=== PATIENT | male | born 1980 | race Caucasian/White ===

== ENCOUNTER 2021-09-26 21:58 | Inpatient (IN) | payer OTHER ==
[~2021-09-26 21:58] MED LIST: Iopamidol-370 76% 500 ML 1 ML ONE
[2021-09-26] MEDS ORDERED: Propofol 1,000 MG/100 ML VIAL IV ONE (22:08)
[2021-09-26] MEDS ORDERED: CEFAZOLIN 1 GM VIAL ONE (22:14)
[2021-09-26] MEDS ORDERED: Fentanyl CADD 100 ML IV SCH (22:15)
[2021-09-26] MEDS ORDERED: Boostrix 0.5 ML (Tdap) VIAL ONE (22:15)
[2021-09-26 22:20] LABS: #Eosinphils 0.2 thou/uL (0.0-0.7); #Lymphocytes 1.8 thou/uL (1.20-3.40); #Monocytes 0.4 thou/uL (0.11-0.59); #Neutrophils 7.5 thou/uL (1.40-6.50); %Basophils 0.3 % (0.0-1.0); %Eosinophils 1.8 % (0.0-10.0); %Lymphocytes 17.9 % (21.0-51.0); %Neutrophils 76.1 % (42.0-75.0); Hemoglobin 15.1 g/dL (14.0-18.0); Mean Corpuscular HGB CONC 33.4 g/dL (32.0-36.0); Mean Corpuscular Volume 92.6 fL (78.0-98.0); Mean Platelet Volume 7.5 fL (7.4-10.4); Platelet Count 218 thou/uL (130-400); RBC Distribution Width 11.8 % (11.5-14.5); Red Blood Cell (RBC) Count 4.87 mill/uL (4.70-6.10); White Blood Cell (WBC) Count 9.9 thou/uL (4.8-10.8)
[2021-09-26] MEDS ORDERED: Midazolam HCl 2 mg/2 ml Vial ONE (22:24)
[2021-09-26] MEDS ORDERED: Vecuronium 10 MG VIAL ONE (22:24)
[2021-09-26] MEDS ORDERED: Sterile Water 10 ML ONE (22:25)
[2021-09-26 22:30] LABS: PTT 29.2 sec (22.9-36.1); Prothrombin Time 13.8 sec (12.0-14.7)
[2021-09-26 22:42] LABS: ALT (SGPT) 29 U/L (8-55); AST (SGOT) 39 U/L (5-34); Acetaminophen Less than 6.0 mcg/mL (10.0-30.0); Alcohol 240 mg/dL (Less than 10); Alkaline Phosphatase 69 U/L (40-110); Anion Gap 21 mmol/L (10-20); BUN (Urea Nitrogen) 9 mg/dL (8.9-20.6); Bilirubin, Total 0.3 mg/dL (0.2-1.2); Calc. Creatinine Clearance 0 mL/min (70-130); Calcium 7.9 mg/dL (7.8-10.44); Carbon Dioxide 12 mmol/L (22-29); Chloride 113 mmol/L (98-107); Globulin 2.9 g/dL (2.4-3.5); Glucose 174 mg/dL (70-105); Lactic Acid 5.9 mmol/L (0.5-2.2); Potassium 4.2 mmol/L (3.5-5.1); Protein, Total 6.9 g/dL (6.0-8.3); Salicylate Less than 8.0 mg/dL (15.0-30.0); Sodium 142 mmol/L (136-145)
[2021-09-26 22:53] LABS: Bilirubin Negative (Negative); Blood, Urine 2+ (Negative); Clarity Clear (Clear); Glucose, Urine (Dipstick) Normal (Negative); Ketone, Urine Trace mg/dL (Negative); Leukocyte Negative Leu/uL (Negative); Nitrite Negative (Negative); Protein, Urine (Dipstick) Negative (Neg-Trace); RBC/HPF 0-3 HPF (0-3); Specific Gravity, Urine 1.008 (1.002-1.036); Squamous Epithelial None Seen HPF (0-3); Urobilinogen Normal mg/dL (Less than 2); WBC/HPF 0-3 HPF (0-3)
[2021-09-26 22:54] LABS: Phosphorus 2.7 mg/dL (2.3-4.7)
[2021-09-26 22:54] LABS: Bacteria/HPF Rare-Few HPF (None Seen)
[2021-09-26 22:55] LABS: Amphetamine Not Detected (NotDetected); Barbiturates Screen Not Detected (NotDetected); Benzodiazepine Screen Not Detected (NotDetected); Cocaine Metabolite Screen Not Detected (NotDetected); Methadone Not Detected (NotDetected); Methamphetamine Not Detected (NotDetected); Opiate Screen Not Detected (NotDetected); Oxycodone Screen Not Detected (NotDetected); Phencyclidine (PCP) Not Detected (NotDetected); THC/Cannabinoid Screen Detected (NotDetected); Tricyclic Screen Not Detected (NotDetected)
[2021-09-26] MEDS ORDERED: hydrALAZINE 20 MG/ML VIAL SLOW IVP PRN (23:08)
[2021-09-26] MEDS ORDERED: Dextrose 50% Abboject 50 ML SYRINGE SLOW IVP PRN (23:08)
[2021-09-26] MEDS ORDERED: Insulin Regular 300 UNITS/3 ML VIAL SC PRN (23:08)
[2021-09-26] MEDS ORDERED: Dextrose 5% in Water 1,000 ML IV PRN (23:08)
[2021-09-26] MEDS ORDERED: Ventilator Sedation Protocol 1 EACH FS SCH (23:15)
[2021-09-26 23:25] LABS: Actual Bicarbonate (HCO3a) 16.1 mEq/L (22-28); Analyzer IN Cardio ER; Base Excess (BEa) -10.3 mEq/L (-2.0 to +3.0); CO2 Tension 37.2 mmHg (35.0-45.0); Calcium, Ionized (arterial) 1.09 mmol/L (1.12-1.30); Carboxyhemoglobin (COHb) 2.9 gm% (0.0-3.0); Hemoglobin (Hb) 14.9 g/dL (14.0-18.0); Potassium - ABG Lab 4.17 mmol/L (3.70-5.30)
[2021-09-26 23:26] LABS: pH, Arterial 7.25 (7.35-7.45)
[2021-09-26 23:27] LABS: O2 Tension (PaO2), arterial 520.2 mmHg (80.0-100.0); Puncture Site LRA
[2021-09-26] MEDS ORDERED: Propofol 1,000 MG/100 ML VIAL IV PRN (23:45)
[2021-09-26] MEDS ORDERED: Sodium Chloride 0.9% 1,000 ML IV SCH (23:45)
[2021-09-26] MEDS ORDERED: levETIRAcetam in NS 500 MG in Premix Bag 1 BAG IVPB SCH (23:59)
[2021-09-26] MEDS ORDERED: Sodium Phosphate 15 MMOL in Sodium Chloride 0.9% 250 ML 250 ML IVPB SCH (23:59)
[2021-09-27 00:09] LABS: SARS-CoV-2 NAA Rapid Test DETECTED (NotDetected)
[2021-09-27] MEDS: Acetaminophen 500 MG TAB PO SCH ×2 (00:09→03:39)
[2021-09-27 00:15] LABS: Actual Bicarbonate (HCO3a) 17.1 mEq/L (22-28); Base Excess (BEa) -9.8 mEq/L (-2.0 to +3.0); CO2 Tension 41.4 mmHg (35.0-45.0); Calcium, Ionized (arterial) 1.12 mmol/L (1.12-1.30); Carboxyhemoglobin (COHb) 1.4 gm% (0.0-3.0); O2 Tension (PaO2), arterial 315.6 mmHg (80.0-100.0); Potassium - ABG Lab 4.22 mmol/L (3.70-5.30)
[2021-09-27 00:17] LABS: Puncture Site RB; pH, Arterial 7.24 (7.35-7.45)
[2021-09-27] MEDS ORDERED: Sodium Bicarb 50 MEQ/50 ML Abboject 8.4% SYRINGE ONE (00:30)
[2021-09-27] MEDS ORDERED: Sodium Bicarb 50 MEQ/50 ML Abboject 8.4% SYRINGE IVP SCH (00:30)
[2021-09-27] MEDS ORDERED: Aspirin Chewable 81 MG TAB ONE (00:32)
[2021-09-27 00:36] LABS: Troponin I Less than 0.010 ng/mL (< 0.028)
[2021-09-27] MEDS: Aspirin 325 mg Enteric Coated Tablet PO SCH ×2 (00:36→03:39)
[2021-09-27] MEDS: Aspirin 325 MG TAB PO SCH (01:00)
[2021-09-27] MEDS ORDERED: Acetaminophen 650 MG/20.3 ML UDCUP PO SCH (01:00)
[2021-09-27] MEDS ORDERED: Sodium Chloride 0.9% 1,000 ML IV SCH (02:00)
[2021-09-27 02:01] VITALS: BMI 18.0
[2021-09-27] MEDS ORDERED: Lidocaine 1% (PF) 30 ML VIAL ONE (04:50)
[2021-09-27] MEDS ORDERED: Lidocaine 1% (PF) 30 ML VIAL SC SCH (05:00)
[2021-09-27 05:05] LABS: #Eosinphils 0.1 thou/uL (0.0-0.7); #Lymphocytes 2.2 thou/uL (1.20-3.40); #Monocytes 0.8 thou/uL (0.11-0.59); #Neutrophils 8.8 thou/uL (1.40-6.50); %Basophils 0.2 % (0.0-1.0); %Eosinophils 0.4 % (0.0-10.0); %Lymphocytes 18.3 % (21.0-51.0); %Monocytes 6.7 % (0.0-10.0); %Neutrophils 74.3 % (42.0-75.0); Hemoglobin 12.6 g/dL (14.0-18.0); Mean Corpuscular HGB CONC 33.2 g/dL (32.0-36.0); Mean Corpuscular Hemoglobin 30.5 pg (27.0-31.0); Mean Corpuscular Volume 92.1 fL (78.0-98.0); Mean Platelet Volume 7.5 fL (7.4-10.4); Platelet Count 189 thou/uL (130-400); RBC Distribution Width 11.8 % (11.5-14.5); Red Blood Cell (RBC) Count 4.14 mill/uL (4.70-6.10); White Blood Cell (WBC) Count 11.8 thou/uL (4.8-10.8)
[2021-09-27] MEDS: Acetaminophen 650 MG/20.3 ML UDCUP PO SCH ×4 (05:14→23:33)
[2021-09-27] MEDS: Oxazepam 10 MG CAP PO SCH ×3 (05:15→22:22)
[2021-09-27 05:24] LABS: Lactic Acid 2.6 mmol/L (0.5-2.2)
[2021-09-27 05:30] LABS: Anion Gap 14 mmol/L (10-20); BUN (Urea Nitrogen) 8 mg/dL (8.9-20.6); CK (CPK) 2418 U/L (30-200); Calc. Creatinine Clearance 106 mL/min (70-130); Calcium 7.5 mg/dL (7.8-10.44); Carbon Dioxide 22 mmol/L (22-29); Chloride 114 mmol/L (98-107); Glucose 83 mg/dL (70-105); Magnesium 1.6 mg/dL (1.6-2.6); Phosphorus 2.9 mg/dL (2.3-4.7); Potassium 3.6 mmol/L (3.5-5.1); Sodium 146 mmol/L (136-145)
[2021-09-27] MEDS ORDERED: Propofol BOLUS 1,000 MG/100 ML VIAL IV PRN (05:45)
[2021-09-27] MEDS ORDERED: Fentanyl BOLUS 250 ML IVPB PRN (05:45)
[2021-09-27] MEDS ORDERED: Potassium Phosphate 30 MMOL in Sodium Chloride 0.9% 250 ML 250 ML IVPB SCH (07:30)
[2021-09-27] MEDS ORDERED: Magnesium Sulfate 3 GM in Sodium Chloride 0.9% 100 ML IV SCH (07:30)
[2021-09-27] MEDS ORDERED: Dextrose 5 %-0.45 % NaCl 1,000 ML IV SCH (07:30)
[2021-09-27 08:18] LABS: Actual Bicarbonate (HCO3a) 21.2 mEq/L (22-28); Base Excess (BEa) -2.4 mEq/L (-2.0 to +3.0); CO2 Tension 33.2 mmHg (35.0-45.0); Calcium, Ionized (arterial) 1.01 mmol/L (1.12-1.30); Hemoglobin (Hb) 12.8 g/dL (14.0-18.0); Potassium - ABG Lab 3.24 mmol/L (3.70-5.30); pH, Arterial 7.42 (7.35-7.45)
[2021-09-27 08:24] LABS: O2 Tension (PaO2), arterial 54.1 mmHg (80.0-100.0); Puncture Site RRA
[2021-09-27] MEDS ORDERED: Calcium Chloride 1 GM/10 ML Abboject SYRINGE IVP SCH (08:45)
[2021-09-27] MEDS: Polyethylene Glycol 3350 17 GM Packet PO SCH (08:46)
[2021-09-27] MEDS: Multivitamin W/ Minerals 1 TAB PO SCH (08:46)
[2021-09-27] MEDS: Thiamine 100 MG TAB PO SCH (08:46)
[2021-09-27] MEDS: Folic Acid 1 MG TAB PO SCH (08:46)
[2021-09-27] MEDS: Senokot S 8.6-50 MG TAB PO SCH ×2 (08:46→20:03)
[2021-09-27] MEDS ORDERED: FLU VACC QS2021-22(6MOS UP)/PF 60 MCG/0.5 ML SYRINGE IM ONE (09:00)
[2021-09-27] MEDS: levETIRAcetam in NS 500 MG in Premix Bag 1 BAG IVPB SCH ×2 (09:01→20:03)
[2021-09-27] MEDS: Famotidine/PF 20 mg/2ml Vial SLOW IVP SCH ×2 (09:03→20:04)
[2021-09-27] MEDS ORDERED: Propofol 1,000 MG/100 ML VIAL IV PRN (13:10)
[2021-09-27] MEDS ORDERED: Lidocaine 1% w/Epinephrine 1:100K 20 ML VIAL ONE ×2 (13:25→13:48)
[2021-09-27] MEDS ORDERED: Iopamidol 370 76% 50 ML VIAL FS ONE (13:36)
[2021-09-27] MEDS ORDERED: Lidocaine 2% w/Epinephrine 1:200K 20 ML VIAL FS SCH (13:45)
[2021-09-27] MEDS ORDERED: Bacitracin 1 PK TOP SCH (13:45)
[2021-09-27] MEDS ORDERED: Lidocaine 2% w/Epi 1:100K 1.7 ML VIAL (Dental) FS SCH (13:45)
[2021-09-27] MEDS: Sodium Chloride 0.9% 1,000 ML IV SCH ×2 (14:31→23:36)
[2021-09-27] MEDS ORDERED: Fentanyl CADD 100 ML ONE (15:11)
[2021-09-27] MEDS: ceFAZolin 1 GM/D5W 1 GM in Premix Bag 1 BAG IVPB SCH (19:50)
[2021-09-27] MEDS ORDERED: Ondansetron PF 4 MG/2 ML Vial IVP PRN (22:10)
[2021-09-28] MEDS: Bacitracin 1 PK TOP PRN (01:09)
[2021-09-28] MEDS: Aspirin 325 MG TAB PO SCH (01:43)
[2021-09-28] MEDS: ceFAZolin 1 GM/D5W 1 GM in Premix Bag 1 BAG IVPB SCH ×3 (02:58→19:57)
[2021-09-28] MEDS: Acetaminophen 650 MG/20.3 ML UDCUP PO SCH (05:54)
[2021-09-28] MEDS: Oxazepam 10 MG CAP PO SCH ×3 (05:54→22:02)
[2021-09-28 05:56] LABS: Anion Gap 12 mmol/L (10-20); BUN (Urea Nitrogen) 8 mg/dL (8.9-20.6); CK (CPK) 1821 U/L (30-200); Calc. Creatinine Clearance 124 mL/min (70-130); Calcium 7.9 mg/dL (7.8-10.44); Carbon Dioxide 17 mmol/L (22-29); Chloride 111 mmol/L (98-107); Glucose 102 mg/dL (70-105); Magnesium 1.9 mg/dL (1.6-2.6); Phosphorus 2.4 mg/dL (2.3-4.7); Potassium 4.2 mmol/L (3.5-5.1); Sodium 136 mmol/L (136-145)
[2021-09-28 06:33] LABS: Lactic Acid 1.5 mmol/L (0.5-2.2)
[2021-09-28] MEDS: Sodium Chloride 0.9% 1,000 ML IV SCH ×4 (08:22→17:25)
[2021-09-28 08:23] LABS: #Eosinphils 0.1 thou/uL (0.0-0.7); #Lymphocytes 1.9 thou/uL (1.20-3.40); #Monocytes 1.1 thou/uL (0.11-0.59); #Neutrophils 7.3 thou/uL (1.40-6.50); %Basophils 0.4 % (0.0-1.0); %Eosinophils 0.8 % (0.0-10.0); %Lymphocytes 17.8 % (21.0-51.0); %Monocytes 10.9 % (0.0-10.0); %Neutrophils 70.1 % (42.0-75.0); MDiff Complete? YES; Mean Corpuscular HGB CONC 33.7 g/dL (32.0-36.0); Mean Corpuscular Hemoglobin 31.3 pg (27.0-31.0); Mean Platelet Volume 9.1 fL (7.4-10.4); Platelet Count 104 thou/uL (130-400); Platelet Morphology Comment Appears Decreased; RBC Distribution Width 11.8 % (11.5-14.5); Red Blood Cell (RBC) Count 3.82 mill/uL (4.70-6.10); White Blood Cell (WBC) Count 10.4 thou/uL (4.8-10.8)
[2021-09-28] MEDS: Thiamine 100 MG TAB PO SCH (08:40)
[2021-09-28] MEDS: Senokot S 8.6-50 MG TAB PO SCH ×3 (08:40→20:20)
[2021-09-28] MEDS: Folic Acid 1 MG TAB PO SCH (08:40)
[2021-09-28] MEDS: Famotidine/PF 20 mg/2ml Vial SLOW IVP SCH ×2 (08:41→20:00)
[2021-09-28] MEDS: Polyethylene Glycol 3350 17 GM Packet PO SCH (08:41)
[2021-09-28] MEDS: Multivitamin W/ Minerals 1 TAB PO SCH (08:41)
[2021-09-28] MEDS: levETIRAcetam in NS 500 MG in Premix Bag 1 BAG IVPB SCH (08:41)
[2021-09-28 10:02] LABS: Actual Bicarbonate (HCO3a) 20.2 mEq/L (22-28); Base Excess (BEa) -3.7 mEq/L (-2.0 to +3.0); CO2 Tension 32.7 mmHg (35.0-45.0); Carboxyhemoglobin (COHb) 0.3 gm% (0.0-3.0); Hemoglobin (Hb) 11.9 g/dL (14.0-18.0); O2 Tension (PaO2), arterial 94.6 mmHg (80.0-100.0); Potassium - ABG Lab 3.23 mmol/L (3.70-5.30); pH, Arterial 7.41 (7.35-7.45)
[2021-09-28 10:03] LABS: Puncture Site RBA
[2021-09-28 10:04] LABS: ALV-art Gradient 64.165 mmHg (0-20)
[2021-09-28] MEDS ORDERED: Acetaminophen 500 MG TAB PO PRN (10:25)
[2021-09-28] MEDS: Morphine 4 MG/ML VIAL SLOW IVP PRN ×2 (11:46→20:30)
[2021-09-28] MEDS: Acetaminophen 500 MG TAB PO SCH ×3 (11:46→23:41)
[2021-09-28 16:09] LABS: SARS-CoV-2 PCR by NAA Indeterminate (NotDetected)
[2021-09-28 17:39] LABS: SARS-CoV-2 NAA Rapid Test Not Detected (NotDetected)
[2021-09-28] MEDS ORDERED: Lorazepam 2 MG/ML VIAL SLOW IVP PRN (22:38)
[2021-09-28] MEDS ORDERED: Cepastat Lozenges 1 LOZ PO PRN (22:38)
[2021-09-28] MEDS ORDERED: Fosphenytoin Sodium 200 MG in Sodium Chloride 0.9% 100 ML IVPB SCH (23:15)
[2021-09-29] MEDS: Morphine 4 MG/ML VIAL SLOW IVP PRN ×3 (01:09→10:40)
[2021-09-29] MEDS: ceFAZolin 1 GM/D5W 1 GM in Premix Bag 1 BAG IVPB SCH ×3 (03:31→20:38)
[2021-09-29] MEDS: Sodium Chloride 0.9% 1,000 ML IV SCH (03:32)
[2021-09-29 04:04] LABS: #Eosinphils 0.2 thou/uL (0.0-0.7); #Lymphocytes 1.3 thou/uL (1.20-3.40); #Monocytes 0.7 thou/uL (0.11-0.59); %Basophils 0.4 % (0.0-1.0); %Eosinophils 2.2 % (0.0-10.0); %Lymphocytes 15.8 % (21.0-51.0); %Monocytes 8.4 % (0.0-10.0); %Neutrophils 73.2 % (42.0-75.0); Hemoglobin 11.2 g/dL (14.0-18.0); Mean Corpuscular HGB CONC 33.1 g/dL (32.0-36.0); Mean Corpuscular Hemoglobin 30.7 pg (27.0-31.0); Mean Corpuscular Volume 92.9 fL (78.0-98.0); Mean Platelet Volume 8.3 fL (7.4-10.4); Platelet Count 138 thou/uL (130-400); RBC Distribution Width 11.6 % (11.5-14.5); Red Blood Cell (RBC) Count 3.66 mill/uL (4.70-6.10); White Blood Cell (WBC) Count 8.2 thou/uL (4.8-10.8)
[2021-09-29 04:37] LABS: Anion Gap 9 mmol/L (10-20); BUN (Urea Nitrogen) 4 mg/dL (8.9-20.6); CK (CPK) 983 U/L (30-200); Calc. Creatinine Clearance 114 mL/min (70-130); Calcium 8.3 mg/dL (7.8-10.44); Carbon Dioxide 25 mmol/L (22-29); Chloride 107 mmol/L (98-107); Glucose 123 mg/dL (70-105); Magnesium 1.6 mg/dL (1.6-2.6); Phosphorus 1.6 mg/dL (2.3-4.7); Potassium 3.6 mmol/L (3.5-5.1); Sodium 137 mmol/L (136-145)
[2021-09-29] MEDS: Acetaminophen 500 MG TAB PO SCH (05:58)
[2021-09-29] MEDS: Oxazepam 10 MG CAP PO SCH ×3 (06:00→20:36)
[2021-09-29] MEDS ORDERED: Potassium Phosphate 30 MMOL, Magnesium Sulfate 3 GM in Sodium Chloride 0.9% 250 ML IVPB SCH (07:15)
[2021-09-29] MEDS ORDERED: Magnesium Sulfate 3 GM in Sodium Chloride 0.9% 100 ML IV SCH (07:15)
[2021-09-29] MEDS: Polyethylene Glycol 3350 17 GM Packet PO SCH (08:07)
[2021-09-29] MEDS: Famotidine/PF 20 mg/2ml Vial SLOW IVP SCH ×2 (08:08→20:37)
[2021-09-29] MEDS: Thiamine 100 MG TAB PO SCH (08:08)
[2021-09-29] MEDS: Cholecalciferol (Vitamin D3) 400 UNITS TAB PO SCH (08:08)
[2021-09-29] MEDS: Senokot S 8.6-50 MG TAB PO SCH ×2 (08:08→20:38)
[2021-09-29] MEDS: Multivitamin W/ Minerals 1 TAB PO SCH (08:08)
[2021-09-29] MEDS: Folic Acid 1 MG TAB PO SCH (08:08)
[2021-09-29] MEDS ORDERED: traMADol HCl 50 MG TAB PO PRN (10:20)
[2021-09-29] MEDS ORDERED: Acetaminophen 500 MG TAB PO PRN (10:25)
[2021-09-29] MEDS: Acetaminophen/Codeine 30-300mg Tablet PO SCH ×3 (10:41→23:24)
[2021-09-29] MEDS: Acetaminophen 325 MG TAB PO SCH ×3 (10:42→23:23)
[2021-09-29] MEDS: Cyclobenzaprine 10 MG TAB PO PRN ×2 (10:43→18:33)
[2021-09-29] MEDS ORDERED: Gabapentin 100 MG CAP PO SCH (10:45)
[2021-09-29] MEDS ORDERED: traMADol HCl 50 MG TAB PO SCH (12:00)
[2021-09-29] MEDS: Gabapentin 100 MG CAP PO SCH ×2 (15:33→20:36)
[2021-09-29] MEDS: Ibuprofen 800 MG TAB PO SCH ×2 (15:34→20:36)
[2021-09-29] MEDS: levETIRAcetam 500 MG TAB PO SCH (20:37)
[2021-09-29] MEDS ORDERED: levETIRAcetam 500 MG TAB PO SCH (21:00)
[2021-09-30] MEDS: ceFAZolin 1 GM/D5W 1 GM in Premix Bag 1 BAG IVPB SCH ×2 (02:45→11:49)
[2021-09-30 04:42] LABS: #Eosinphils 0.3 thou/uL (0.0-0.7); #Lymphocytes 1.6 thou/uL (1.20-3.40); #Monocytes 0.5 thou/uL (0.11-0.59); #Neutrophils 3.3 thou/uL (1.40-6.50); %Basophils 0.1 % (0.0-1.0); %Eosinophils 5.4 % (0.0-10.0); %Lymphocytes 27.8 % (21.0-51.0); %Monocytes 9.2 % (0.0-10.0); %Neutrophils 57.5 % (42.0-75.0); Hemoglobin 12.2 g/dL (14.0-18.0); Mean Corpuscular Hemoglobin 31.6 pg (27.0-31.0); Mean Corpuscular Volume 92.9 fL (78.0-98.0); Mean Platelet Volume 7.6 fL (7.4-10.4); Platelet Count 152 thou/uL (130-400); RBC Distribution Width 11.5 % (11.5-14.5); Red Blood Cell (RBC) Count 3.86 mill/uL (4.70-6.10); White Blood Cell (WBC) Count 5.8 thou/uL (4.8-10.8)
[2021-09-30 05:04] LABS: Anion Gap 10 mmol/L (10-20); BUN (Urea Nitrogen) 5 mg/dL (8.9-20.6); CK (CPK) 389 U/L (30-200); Calc. Creatinine Clearance 121 mL/min (70-130); Calcium 8.6 mg/dL (7.8-10.44); Carbon Dioxide 25 mmol/L (22-29); Chloride 109 mmol/L (98-107); Glucose 90 mg/dL (70-105); Magnesium 1.9 mg/dL (1.6-2.6); Phosphorus 3.5 mg/dL (2.3-4.7); Potassium 3.6 mmol/L (3.5-5.1); Sodium 140 mmol/L (136-145)
[2021-09-30] MEDS: Ibuprofen 800 MG TAB PO SCH ×2 (05:26→15:03)
[2021-09-30] MEDS: Acetaminophen 325 MG TAB PO SCH (05:27)
[2021-09-30] MEDS: Acetaminophen/Codeine 30-300mg Tablet PO SCH (05:27)
[2021-09-30] MEDS: Oxazepam 10 MG CAP PO SCH ×2 (05:28→15:05)
[2021-09-30] MEDS ORDERED: Enoxaparin Sodium 40 MG/0.4 ML SYRINGE SC SCH (09:00)
[2021-09-30] MEDS: Folic Acid 1 MG TAB PO SCH (09:32)
[2021-09-30] MEDS: Famotidine/PF 20 mg/2ml Vial SLOW IVP SCH (09:32)
[2021-09-30] MEDS: Senokot S 8.6-50 MG TAB PO SCH (09:32)
[2021-09-30] MEDS: Thiamine 100 MG TAB PO SCH (09:32)
[2021-09-30] MEDS: Cholecalciferol (Vitamin D3) 400 UNITS TAB PO SCH (09:32)
[2021-09-30] MEDS: Gabapentin 100 MG CAP PO SCH ×2 (09:33→15:05)
[2021-09-30] MEDS: Polyethylene Glycol 3350 17 GM Packet PO SCH (09:33)
[2021-09-30] MEDS: levETIRAcetam 500 MG TAB PO SCH (09:33)
[2021-09-30] MEDS: Bacitracin 1 PK TOP PRN (09:38)
[2021-09-30] MEDS: Cyclobenzaprine 10 MG TAB PO PRN (09:43)
[2021-09-30] MEDS: Multivitamin W/ Minerals 1 TAB PO SCH (09:43)
[2021-09-30] MEDS ORDERED: Acetaminophen/Codeine 30-300mg Tablet PO SCH (12:00)
[2021-09-30] MEDS ORDERED: Acetaminophen 325 MG TAB PO SCH (12:00)
[2021-09-30 16:11] VITALS: TEMP 98.4
[2021-09-30 16:21] VITALS: BP 132/84
== END 2021-09-30 17:46 | disposition home or self-care (01) | DRG 963 ==
LOC: ERS 21:58 → CCU 22:01 → IMCU/EMU 09-29 01:30 → SURG B 09-29 13:37
PROVIDERS: ADMIT Specialist; ATTEND Specialist
PROC: 5A1945Z Respiratory Ventilation, 24-96 Consecutive Hours (ICD-10-PCS; principal; 2021-09-26)
PROC: 0D9670Z Drainage of Stomach with Drainage Device, Via Natural or Artificial Opening (ICD-10-PCS; 2021-09-26)
PROC: 8E0ZXY6 Isolation (ICD-10-PCS; 2021-09-26)
PROC: 0HQ0XZZ Repair Scalp Skin, External Approach (ICD-10-PCS; 2021-09-27)
PROC: 09QKXZZ Repair Nasal Mucosa and Soft Tissue, External Approach (ICD-10-PCS; 2021-09-27)
PROC: 09Q1XZZ Repair Left External Ear, External Approach (ICD-10-PCS; 2021-09-27)
PROC: 0HC1XZZ Extirpation of Matter from Face Skin, External Approach (ICD-10-PCS; 2021-09-27)
DX: S06.0X9A Concussion with loss of consciousness of unspecified duration, initial encounter (principal); U07.1 COVID-19; S27.0XXA Traumatic pneumothorax, initial encounter; S15.002A Unspecified injury of left carotid artery, initial encounter; T79.4XXA Traumatic shock, initial encounter; J96.00 Acute respiratory failure, unspecified whether with hypoxia or hypercapnia; S22.089A Unspecified fracture of T11-T12 vertebra, initial encounter for closed fracture; S22.42XA Multiple fractures of ribs, left side, initial encounter for closed fracture; S27.321A Contusion of lung, unilateral, initial encounter; R40.2311 Coma scale, best motor response, none, in the field [EMT or ambulance]; R40.2111 Coma scale, eyes open, never, in the field [EMT or ambulance]; R40.2211 Coma scale, best verbal response, none, in the field [EMT or ambulance]; F31.9 Bipolar disorder, unspecified; G40.909 Epilepsy, unspecified, not intractable, without status epilepticus; F10.129 Alcohol abuse with intoxication, unspecified; Y90.8 Blood alcohol level of 240 mg/100 ml or more; S01.312A Laceration without foreign body of left ear, initial encounter; S42.001A Fracture of unspecified part of right clavicle, initial encounter for closed fracture; S01.82XA Laceration with foreign body of other part of head, initial encounter; S42.112A Displaced fracture of body of scapula, left shoulder, initial encounter for closed fracture; Z88.8 Allergy status to other drugs, medicaments and biological substances; Z91.040 Latex allergy status; Z78.1 Physical restraint status; Y92.89 Other specified places as the place of occurrence of the external cause; Z79.899 Other long term (current) drug therapy; Z91.030 Bee allergy status; V47.5XXA Car driver injured in collision with fixed or stationary object in traffic accident, initial encounter; Z23 Encounter for immunization
CPT/HCPCS: 36415; 36416; 36600; 51702; 70450; 70486; 70498; 71045; 71260; 72125; 72170; 74177; 80048; 80053; 80306; 80307; 81003; 81015; 82550; 82805; 83605; 83735; 84100; 84146; 84484; 85025; 85610; 85730; 86850; 86900; 86901; 90471; 90715; 93005; 94002; 94003; 94640; 96365; 96368; 96375; 96376; G0390; J0690; J1650; J1953; J2001; J2250; J2270; J2405; J2704; J3010; J3475; J3490; J7030; J7042; J7050; J7620; Q2009; Q9967; S0028; U0002; U0003; U0005

== ENCOUNTER 2021-10-01 04:42 | Observation (INO) | payer OTHER ==
[2021-10-01] MEDS ORDERED: Dextrose 50% Abboject 50 ML SYRINGE SLOW IVP PRN (05:04)
[2021-10-01] MEDS ORDERED: Ondansetron ODT 4 MG TAB PO PRN (05:04)
[2021-10-01] MEDS ORDERED: Ondansetron PF 4 MG/2 ML Vial IVP PRN (05:04)
[2021-10-01] MEDS ORDERED: hydrALAZINE 20 MG/ML VIAL SLOW IVP PRN (05:04)
[2021-10-01] MEDS ORDERED: Dextrose 5% in Water 1,000 ML IV PRN (05:04)
[2021-10-01] MEDS ORDERED: Cyclobenzaprine 10 MG TAB PO PRN ×2 (05:07→07:00)
[2021-10-01] MEDS ORDERED: traMADol HCl 50 MG TAB PO PRN (05:07)
[2021-10-01] MEDS ORDERED: Acetaminophen/Codeine 30-300mg Tablet PO PRN (05:08)
[2021-10-01] MEDS ORDERED: traMADol HCl 50 MG TAB PO SCH (06:00)
[2021-10-01] MEDS ORDERED: Acetaminophen 325 MG TAB PO SCH (06:00)
[2021-10-01] MEDS ORDERED: Sodium Chloride 0.9% 1,000 ML IV SCH (06:00)
[2021-10-01] MEDS ORDERED: Cyclobenzaprine 10 MG TAB PO SCH (07:15)
[2021-10-01] MEDS: Acetaminophen/Codeine 30-300mg Tablet PO SCH ×2 (08:28→13:42)
[2021-10-01] MEDS: Ibuprofen 200 MG TAB PO SCH ×2 (08:30→13:44)
[2021-10-01] MEDS: Acetaminophen 325 MG TAB PO SCH ×2 (08:31→13:43)
[2021-10-01] MEDS ORDERED: levETIRAcetam 500 MG TAB PO SCH (09:00)
[2021-10-01] MEDS ORDERED: Famotidine 20 MG TAB PO SCH (09:00)
[2021-10-01] MEDS ORDERED: Gabapentin 300 MG CAP PO SCH (09:00)
[2021-10-01 11:30] VITALS: BP 112/78
[2021-10-01 15:18] VITALS: TEMP 97.8
== END 2021-10-01 15:20 | disposition home or self-care (01) ==
LOC: SURG B 04:42
PROVIDERS: ADMIT Specialist; ATTEND Specialist
DX: J93.9 Pneumothorax, unspecified (principal); G89.11 Acute pain due to trauma; S22.42XA Multiple fractures of ribs, left side, initial encounter for closed fracture; S42.102A Fracture of unspecified part of scapula, left shoulder, initial encounter for closed fracture; S42.002A Fracture of unspecified part of left clavicle, initial encounter for closed fracture; S22.089A Unspecified fracture of T11-T12 vertebra, initial encounter for closed fracture; G40.909 Epilepsy, unspecified, not intractable, without status epilepticus; F17.210 Nicotine dependence, cigarettes, uncomplicated; Z79.899 Other long term (current) drug therapy; Z88.5 Allergy status to narcotic agent; Z88.8 Allergy status to other drugs, medicaments and biological substances; Z91.018 Allergy to other foods; Z91.030 Bee allergy status; Z91.040 Latex allergy status; V49.9XXA Car occupant (driver) (passenger) injured in unspecified traffic accident, initial encounter
CPT/HCPCS: 36416; 71045; 94640; G0378; J7620

== ENCOUNTER 2023-08-08 00:12 | Inpatient (IN) | payer OTHER ==
[2023-08-08] MEDS ORDERED: Ondansetron PF 4 MG/2 ML Vial ONE (00:55)
[2023-08-08] MEDS ORDERED: Morphine 4 MG/ML VIAL ONE ×2 (00:55→05:22)
[2023-08-08] MEDS ORDERED: Boostrix 0.5 ML (Tdap) VIAL (>/=7 yrs of age) ONE ×2 (00:55→07:18)
[2023-08-08 01:53] LABS: #Basophils 0.1 thou/uL (0.0-0.2); #Eosinphils 0.2 thou/uL (0.0-0.7); #Monocytes 0.7 thou/uL (0.11-0.59); #Neutrophils 7.3 thou/uL (1.40-6.50); %Basophils 0.6 % (0.0-1.0); %Eosinophils 2.1 % (0.0-10.0); %Lymphocytes 24.7 % (21.0-51.0); %Monocytes 6.4 % (0.0-10.0); %Neutrophils 65.9 % (42.0-75.0); Hematocrit 42.4 % (42.0-52.0); Hemoglobin 14.1 g/dL (14.0-18.0); Mean Corpuscular HGB CONC 33.3 g/dL (32.0-36.0); Mean Corpuscular Hemoglobin 29.9 pg (27.0-31.0); Mean Corpuscular Volume 89.8 fl (78.0-98.0); Mean Platelet Volume 10.3 fL (7.4-10.4); Platelet Count 208 10x3/uL (130-400); RBC Distribution Width 12.5 % (11.5-14.5); Red Blood Cell (RBC) Count 4.72 mill/uL (4.70-6.10)
[2023-08-08 01:54] LABS: Bacteria/HPF None Seen HPF (None Seen); Bilirubin Negative (Negative); Blood, Urine Negative (Negative); CAUTI Indications for Culture Dysuria,urgency,freq; Clarity Clear (Clear); Glucose, Urine (Dipstick) Normal (Negative); Ketone, Urine Negative (Negative); Leukocyte Negative Leu/uL (Negative); Nitrite Negative (Negative); Protein, Urine (Dipstick) Negative (Neg-Trace); RBC/HPF None Seen HPF (0-3); Specific Gravity, Urine 1.025 (1.002-1.036); Squamous Epithelial None Seen HPF (0-3); Urobilinogen Normal mg/dL (Less than 2); WBC/HPF None Seen HPF (0-3)
[2023-08-08 01:56] LABS: Urine Culture Reflex No No
[2023-08-08 02:06] LABS: PTT 29.7 sec (22.9-36.1); Prothrombin Time 13.9 sec (12.0-14.7)
[2023-08-08 02:15] LABS: ALT (SGPT) 18 U/L (8-55); AST (SGOT) 20 U/L (5-34); Albumin 4.5 g/dL (3.5-5.0); Alcohol 169.2 mg/dL (Less than 10); Alkaline Phosphatase 64 U/L (40-110); Anion Gap 20 mmol/L (10-20); BUN (Urea Nitrogen) 7 mg/dL (8.9-20.6); Bilirubin, Total 0.2 mg/dL (0.2-1.2); Calc. Creatinine Clearance 0 mL/min (70-130); Calcium 8.9 mg/dL (7.8-10.44); Carbon Dioxide 18 mmol/L (22-29); Chloride 110 mmol/L (98-107); Estimated GFR 113; Glucose 100 mg/dL (70-105); Lipase 35 U/L (8-78); Potassium 3.8 mmol/L (3.5-5.1); Protein, Total 7.5 g/dL (6.0-8.3); Sodium 144 mmol/L (136-145)
[2023-08-08 04:33] LABS: Amphetamine Not Detected (NotDetected); Barbiturates Screen Not Detected (NotDetected); Benzodiazepine Screen Not Detected (NotDetected); Cocaine Metabolite Screen Not Detected (NotDetected); Methadone Not Detected (NotDetected); Methamphetamine Not Detected (NotDetected); Opiate Screen Detected (NotDetected); Oxycodone Screen Not Detected (NotDetected); Phencyclidine (PCP) Not Detected (NotDetected); THC/Cannabinoid Screen Detected (NotDetected); Tricyclic Screen Not Detected (NotDetected)
[2023-08-08] MEDS ORDERED: Morphine 4 MG/ML VIAL SLOW IVP PRN ×2 (05:41→11:24)
[2023-08-08] MEDS ORDERED: Ondansetron PF 4 MG/2 ML Vial IVP PRN (05:45)
[2023-08-08] MEDS ORDERED: Sodium Chloride 0.9% 1,000 ML IV SCH (05:45)
[2023-08-08] MEDS ORDERED: Ondansetron ODT 4 MG TAB SL PRN (05:45)
[2023-08-08 06:01] VITALS: BMI 16.9
[2023-08-08] MEDS ORDERED: Ipratropium/Albuterol 3 ML NEB NEB PRN (08:14)
[2023-08-08] MEDS ORDERED: Acetaminophen 325 MG TAB PO SCH ×2 (08:15)
[2023-08-08] MEDS: Acetaminophen 325 MG TAB PO SCH ×3 (09:28→20:50)
[2023-08-08] MEDS: Famotidine 20 MG TAB PO SCH ×2 (09:28→20:51)
[2023-08-08] MEDS: Acetaminophen/Codeine 30-300mg Tablet PO SCH ×3 (09:28→20:49)
[2023-08-08] MEDS: Senokot S 8.6-50 MG TAB PO SCH ×2 (09:29→20:51)
[2023-08-08] MEDS: Pregabalin 50 MG CAP PO SCH ×3 (09:29→20:52)
[2023-08-08] MEDS: Polyethylene Glycol 3350 17 GM Packet PO SCH (09:29)
[2023-08-08] MEDS ORDERED: Ketorolac Tromethamine 30 MG/ML VIAL IVP SCH ×2 (10:15→17:00)
[2023-08-08] MEDS: Dexamethasone 4 mg/ml Vial SLOW IVP SCH ×3 (12:41→23:09)
[2023-08-08] MEDS: Cyclobenzaprine 10 MG TAB PO PRN ×2 (12:41→20:52)
[2023-08-08] MEDS ORDERED: FLU VACC QS2023-24(6MOS UP)/PF 60 MCG/0.5 ML SYRINGE IM ONE (13:00)
[2023-08-08] MEDS ORDERED: Iopamidol 370 76% 100 ML VIAL ONE (15:54)
[2023-08-09] MEDS: Acetaminophen 325 MG TAB PO SCH ×4 (03:12→21:00)
[2023-08-09] MEDS: Acetaminophen/Codeine 30-300mg Tablet PO SCH ×4 (03:12→20:49)
[2023-08-09] MEDS: Dexamethasone 4 mg/ml Vial SLOW IVP SCH (05:02)
[2023-08-09] MEDS: Cyclobenzaprine 10 MG TAB PO PRN ×3 (06:23→23:31)
[2023-08-09] MEDS: Pregabalin 50 MG CAP PO SCH ×3 (08:44→20:51)
[2023-08-09] MEDS: Famotidine 20 MG TAB PO SCH ×2 (08:44→20:51)
[2023-08-09] MEDS: Senokot S 8.6-50 MG TAB PO SCH ×2 (08:44→20:49)
[2023-08-09] MEDS ORDERED: Ketorolac Tromethamine 30 MG/ML VIAL IVP SCH (11:45)
[2023-08-09] MEDS: Polyethylene Glycol 3350 17 GM Packet PO SCH (12:01)
[2023-08-09] MEDS: Sodium Chloride 0.9% 1,000 ML IV SCH ×2 (12:12→20:51)
[2023-08-09] MEDS: Scopolamine 1.5 mg/72 hour Patch TD SCH (17:45)
[2023-08-09] MEDS: Ketorolac Tromethamine 30 MG/ML VIAL IVP SCH ×2 (17:46→23:30)
[2023-08-09] MEDS: Melatonin 3 MG TAB PO PRN (23:31)
[2023-08-09] MEDS: Nicotine 21 MG PATCH TOP SCH (23:31)
[2023-08-10] MEDS: Sodium Chloride 0.9% 1,000 ML IV SCH (01:46)
[2023-08-10] MEDS: Acetaminophen/Codeine 30-300mg Tablet PO SCH ×4 (03:52→20:02)
[2023-08-10] MEDS: Acetaminophen 325 MG TAB PO SCH ×4 (03:53→20:03)
[2023-08-10] MEDS: Pregabalin 50 MG CAP PO SCH ×3 (09:06→20:03)
[2023-08-10] MEDS: Famotidine 20 MG TAB PO SCH ×2 (09:07→20:03)
[2023-08-10] MEDS: Senokot S 8.6-50 MG TAB PO SCH ×2 (09:07→20:03)
[2023-08-10] MEDS: Polyethylene Glycol 3350 17 GM Packet PO SCH (09:08)
[2023-08-10] MEDS: Cyclobenzaprine 10 MG TAB PO PRN ×3 (10:03→23:22)
[2023-08-10] MEDS: CeleCOXIB 100 MG CAP PO SCH ×2 (10:04→20:32)
[2023-08-10] MEDS ORDERED: Acetaminophen/Codeine 30-300mg Tablet PO PRN (12:18)
[2023-08-10] MEDS ORDERED: Ibuprofen 200 MG TAB PO SCH (14:00)
[2023-08-10] MEDS: Nicotine 21 MG PATCH TOP SCH (20:14)
[2023-08-10] MEDS: Melatonin 3 MG TAB PO PRN (23:22)
[2023-08-11] MEDS: Acetaminophen/Codeine 30-300mg Tablet PO SCH ×4 (03:37→20:30)
[2023-08-11] MEDS: Acetaminophen 325 MG TAB PO SCH ×4 (03:37→20:31)
[2023-08-11] MEDS: Famotidine 20 MG TAB PO SCH ×2 (09:10→20:31)
[2023-08-11] MEDS: Senokot S 8.6-50 MG TAB PO SCH ×2 (09:10→20:31)
[2023-08-11] MEDS: Polyethylene Glycol 3350 17 GM Packet PO SCH (09:11)
[2023-08-11] MEDS: Pregabalin 50 MG CAP PO SCH ×3 (09:11→20:31)
[2023-08-11] MEDS: CeleCOXIB 100 MG CAP PO SCH ×2 (10:01→20:31)
[2023-08-11] MEDS: Cyclobenzaprine 10 MG TAB PO PRN ×2 (11:45→23:15)
[2023-08-11] MEDS: Nicotine 21 MG PATCH TOP SCH (20:32)
[2023-08-11] MEDS: Melatonin 3 MG TAB PO PRN (23:15)
[2023-08-12] MEDS: Acetaminophen/Codeine 30-300mg Tablet PO SCH ×4 (04:05→20:41)
[2023-08-12] MEDS: Acetaminophen 325 MG TAB PO SCH ×4 (04:06→20:41)
[2023-08-12] MEDS: CeleCOXIB 100 MG CAP PO SCH ×2 (08:40→20:49)
[2023-08-12] MEDS: Famotidine 20 MG TAB PO SCH ×2 (08:40→20:49)
[2023-08-12] MEDS: Pregabalin 50 MG CAP PO SCH ×3 (08:40→20:40)
[2023-08-12] MEDS: Senokot S 8.6-50 MG TAB PO SCH ×2 (08:40→20:41)
[2023-08-12] MEDS: Polyethylene Glycol 3350 17 GM Packet PO SCH (08:41)
[2023-08-12] MEDS: Cyclobenzaprine 10 MG TAB PO PRN (09:49)
[2023-08-12] MEDS: Scopolamine 1.5 mg/72 hour Patch TD SCH (15:42)
[2023-08-12 19:31] LABS: Thyroid Stimulating Hormone 3.1179 uIU/mL (0.35-4.94)
[2023-08-12] MEDS: Multivitamins, Adult 10 ML, Folic Acid 1 MG, Thiamine HCl 100 MG in Dextrose 5 %-0.45 %... IV SCH (20:39)
[2023-08-12] MEDS: Nicotine 21 MG PATCH TOP SCH (20:39)
[2023-08-13] MEDS: Cyclobenzaprine 10 MG TAB PO PRN ×2 (01:23→12:01)
[2023-08-13] MEDS: Acetaminophen 325 MG TAB PO SCH ×4 (03:00→20:10)
[2023-08-13] MEDS: Acetaminophen/Codeine 30-300mg Tablet PO SCH ×4 (03:00→20:07)
[2023-08-13] MEDS: Polyethylene Glycol 3350 17 GM Packet PO SCH (08:59)
[2023-08-13] MEDS: Pregabalin 50 MG CAP PO SCH (08:59)
[2023-08-13] MEDS: Senokot S 8.6-50 MG TAB PO SCH ×2 (09:00→20:10)
[2023-08-13] MEDS: Famotidine 20 MG TAB PO SCH ×2 (09:00→20:10)
[2023-08-13] MEDS: CeleCOXIB 100 MG CAP PO SCH ×2 (09:02→20:09)
[2023-08-13] MEDS: Multivitamins, Adult 10 ML, Folic Acid 1 MG, Thiamine HCl 100 MG in Dextrose 5 %-0.45 %... IV SCH (19:39)
[2023-08-13 19:47] VITALS: BP 115/79; TEMP 98.3
[2023-08-13] MEDS: Nicotine 21 MG PATCH TOP SCH (20:07)
[2023-08-13] MEDS ORDERED: Pregabalin 75 MG CAP PO SCH (21:00)
== END 2023-08-13 21:17 | disposition home or self-care (01) | DRG 552 ==
LOC: ERS 00:12 → SURG B 04:20 → OBSVTOIN 08-09 15:50
PROVIDERS: ADMIT Surgery; ATTEND Surgery
PROC: 4A00X4Z Measurement of Central Nervous Electrical Activity, External Approach (ICD-10-PCS; principal; 2023-08-13)
DX: M50.322 Other cervical disc degeneration at C5-C6 level (principal); S22.32XA Fracture of one rib, left side, initial encounter for closed fracture; S42.112A Displaced fracture of body of scapula, left shoulder, initial encounter for closed fracture; V89.2XXA Person injured in unspecified motor-vehicle accident, traffic, initial encounter; F31.9 Bipolar disorder, unspecified; F10.129 Alcohol abuse with intoxication, unspecified; S42.002A Fracture of unspecified part of left clavicle, initial encounter for closed fracture; I10 Essential (primary) hypertension; G40.909 Epilepsy, unspecified, not intractable, without status epilepticus; F17.210 Nicotine dependence, cigarettes, uncomplicated; Z79.899 Other long term (current) drug therapy; Z98.890 Other specified postprocedural states; Z91.040 Latex allergy status; Z88.8 Allergy status to other drugs, medicaments and biological substances; Z88.5 Allergy status to narcotic agent
CPT/HCPCS: 36415; 51702; 70450; 70551; 71045; 71260; 72125; 72141; 72146; 72148; 74177; 80053; 80306; 80307; 81001; 82175; 82607; 83655; 83690; 83825; 84425; 84443; 85025; 85610; 85730; 90471; 90715; 93005; 93306; 95711; 95819; 95957; 96374; 96375; 96376; G0390; J1100; J1650; J1885; J2270; J2405; J3411; J7042; J7050; Q9967

== ENCOUNTER 2025-05-31 05:37 | Day surgery (SDC) | payer OTHER ==
[2025-05-30 12:57] VITALS: BMI 18.1
[2025-05-31] MEDS ORDERED: fentaNYL PF 100 MCG/2 ML SYRINGE ONE ×2 (06:46→09:15)
[2025-05-31] MEDS ORDERED: PROPOFOL 20 ML ONE (06:46)
[2025-05-31] MEDS ORDERED: Lidocaine 1% PF 5 ML VIAL ONE (06:46)
[2025-05-31] MEDS ORDERED: CEFAZOLIN 2 GM VIAL ONE (07:24)
[2025-05-31] MEDS ORDERED: Ketorolac Tromethamine 30 MG (1 mL) VIAL ONE (08:02)
[2025-05-31] MEDS ORDERED: Ondansetron PF 4 MG/2 ML Vial ONE (08:16)
== END 2025-05-31 10:44 | disposition home or self-care (01) ==
LOC: SDC 05:37
PROVIDERS: ATTEND Orthopaedic Surgery
PROC: 0SBD0ZZ Excision of Left Knee Joint, Open Approach (ICD-10-PCS; principal; 2025-05-31)
DX: S82.232D Displaced oblique fracture of shaft of left tibia, subsequent encounter for closed fracture with routine healing (principal); F17.200 Nicotine dependence, unspecified, uncomplicated; Z91.040 Latex allergy status; Z91.030 Bee allergy status; Z88.5 Allergy status to narcotic agent; Z88.8 Allergy status to other drugs, medicaments and biological substances; W34.00XD Accidental discharge from unspecified firearms or gun, subsequent encounter
CPT/HCPCS: C1889; J1100; J1885; J2250; J2405; J2704